=== PATIENT | male | born 1990 | race African-American/Black ===

== ENCOUNTER 2019-05-10 19:30 | Emergency (ER) | payer OTHER, MEDICAID ==
[~2019-05-10] VITALS: Ht 175.3 cm; Wt 73.0 kg
[~2019-05-10 19:30] MED LIST: BACTRIM; VICODIN
[2019-05-10 19:31] VITALS: BP 138/72
== END 2019-05-10 20:40 | disposition home or self-care (01) ==
LOC: ER 19:30
DX: Z00.00 Encounter for general adult medical examination without abnormal findings (principal)
CPT/HCPCS: 99283

== ENCOUNTER 2019-05-17 08:12 | Emergency (ER) | payer MEDICAID, OTHER ==
[~2019-05-17] VITALS: Ht 185.4 cm; Wt 82.0 kg
[2019-05-17] MEDS ORDERED: LORAZEPAM 2MG/ML CPJ IM ONE (09:15)
[2019-05-17 09:21] LABS: EOSINOPHILS % 0.4 % (0.0-5.0); HEMATOCRIT. 38.8 % (42.0-52.0); HEMOGLOBIN. 13.1 g/dL (14.0-18.0); LYMPHOCYTES % 26.4 % (20.0-50.0); MEAN CORPUSCULAR HEMOGLOBIN 28.4 pg (28.0-32.0); MEAN CORPUSCULAR VOLUME 84.2 fL (80.0-94.0); MEAN PLATELET VOLUME 7.7 fl (7.4-10.4); MONOCYTES % 10.4 % (2.0-8.0); NEUTROPHILS % 61.8 % (40.0-76.0); PLATELET 219 x1000/uL (130-400); RED CELL DISTRIBUTION WIDTH 13.5 % (11.6-14.6)
[2019-05-17 09:35] LABS: CHLORIDE 107 mEq/L (98-107)
[2019-05-17 09:39] LABS: ETHANOL BLOOD < 10 mg/dL
[2019-05-17] MEDS ORDERED: HALOPERIDOL LACTATE 5MG/ML VIAL IM ONE (10:30)
[2019-05-17 11:53] LABS: CLARITY URINE CLOUDY (CLEAR); COLOR URINE YELLOW (YELLOW); KETONES URINE TRACE (NEGATIVE); LEUKOCYTE ESTERASE URINE TRACE (NEGATIVE); NITRITE URINE NEGATIVE (NEGATIVE); OCCULT BLOOD URINE 2+ (NEGATIVE); PH URINE 5.5 (4.5-8.0); PROTEIN URINE 1+ (NEGATIVE); SPECIFIC GRAVITY URINE 1.028 (1.005-1.030)
[2019-05-17 12:48] LABS: *AMPHETAMINES SCREEN URINE PRESUMTIVE POSITIVE (NEGATIVE); *BARBITURATES SCREEN URINE NEGATIVE (NEGATIVE)
[2019-05-17 12:49] LABS: *BENZODIAZEPINES SCREEN URINE NEGATIVE (NEGATIVE); *COCAINE SCREEN URINE NEGATIVE (NEGATIVE); CANNABINOID URINE SCREEN PRESUMTIVE POSITIVE (NEGATIVE); METHADONE URINE SCREEN NEGATIVE (NEGATIVE); PHENCYCLIDINE URINE SCREEN NEGATIVE (NEGATIVE)
[2019-05-17 12:51] LABS: OPIATES URINE SCREEN NEGATIVE (NEGATIVE)
[2019-05-17 20:10] VITALS: BP 113/113
== END 2019-05-17 21:05 | disposition home or self-care (01) ==
LOC: ER 08:12
DX: F29 Unspecified psychosis not due to a substance or known physiological condition (principal); F45.8 Other somatoform disorders; F19.10 Other psychoactive substance abuse, uncomplicated; D64.9 Anemia, unspecified; N39.0 Urinary tract infection, site not specified; F12.10 Cannabis abuse, uncomplicated; F15.10 Other stimulant abuse, uncomplicated
CPT/HCPCS: 36415; 80053; 80305; 80320; 81003; 85025; 87086; 96372; 99284; J1630; J2060; Z7610; G0480

== ENCOUNTER 2019-10-01 13:10 | Emergency (ER) | payer MEDICAID ==
[~2019-10-01] VITALS: Ht 193 cm; Wt 59.0 kg
[2019-10-01 18:05] LABS: BASOPHILS % 0.7 % (0.0-2.0); EOSINOPHILS % 0.8 % (0.0-5.0); HEMATOCRIT. 47.1 % (42.0-52.0); HEMOGLOBIN. 15.9 g/dL (14.0-18.0); LYMPHOCYTES % 48.8 % (20.0-50.0); MEAN CORPUSCULAR HEMOGLOBIN 28.1 pg (28.0-32.0); MEAN CORPUSCULAR VOLUME 83.3 fL (80.0-94.0); MEAN PLATELET VOLUME 7.9 fl (7.4-10.4); MONOCYTES % 10.7 % (2.0-8.0); PLATELET 212 x1000/uL (130-400); RED BLOOD CELL COUNT 5.65 mill/uL (4.7-6.1); RED CELL DISTRIBUTION WIDTH 13.7 % (11.6-14.6)
[2019-10-01 18:06] LABS: CHLORIDE 106 mEq/L (98-107)
[2019-10-01 18:10] LABS: ETHANOL BLOOD < 10 mg/dL
[2019-10-01 19:11] LABS: CLARITY URINE TURBID (CLEAR); COLOR URINE DARK YELLOW (YELLOW); KETONES URINE TRACE (NEGATIVE); LEUKOCYTE ESTERASE URINE TRACE (NEGATIVE); NITRITE URINE NEGATIVE (NEGATIVE); OCCULT BLOOD URINE NEGATIVE (NEGATIVE); PROTEIN URINE 2+ (NEGATIVE); SPECIFIC GRAVITY URINE 1.031 (1.005-1.030)
[2019-10-01 19:28] LABS: *AMPHETAMINES SCREEN URINE PRESUMTIVE POSITIVE (NEGATIVE)
[2019-10-01 19:29] LABS: *BARBITURATES SCREEN URINE NEGATIVE (NEGATIVE); *BENZODIAZEPINES SCREEN URINE NEGATIVE (NEGATIVE); *COCAINE SCREEN URINE NEGATIVE (NEGATIVE); METHADONE URINE SCREEN NEGATIVE (NEGATIVE); OPIATES URINE SCREEN NEGATIVE (NEGATIVE); PHENCYCLIDINE URINE SCREEN NEGATIVE (NEGATIVE)
[2019-10-01 19:30] LABS: CANNABINOID URINE SCREEN PRESUMTIVE POSITIVE (NEGATIVE)
[2019-10-01] MEDS ORDERED: LORAZEPAM 1MG TABLET PO ONE (19:45)
[2019-10-01] MEDS ORDERED: ZIPRASIDONE HCL 20MG CAPSULE PO STA (19:48)
[2019-10-01] MEDS ORDERED: ZIPRASIDONE MESYLATE 20MG/VIAL IM ONE (20:00)
[2019-10-01] MEDS ORDERED: NICOTINE 14MG PATCH TD ONE (20:30)
[2019-10-01] MEDS ORDERED: ZIPRASIDONE MESYLATE 20MG/VIAL IM NR (20:45)
[2019-10-01] MEDS: QUETIAPINE FUMARATE 50MG TABLET PO SCH (21:00)
[2019-10-02] MEDS: QUETIAPINE FUMARATE 50MG TABLET PO SCH ×2 (09:09→21:00)
[2019-10-02] MEDS ORDERED: QUETIAPINE FUMARATE 50MG TABLET PO SCH (09:15)
[2019-10-03 16:00] VITALS: BP 129/72
== END 2019-10-03 16:12 ==
LOC: ER 13:10
DX: R45.851 Suicidal ideations (principal); F23 Brief psychotic disorder; F12.10 Cannabis abuse, uncomplicated; F15.10 Other stimulant abuse, uncomplicated; F17.200 Nicotine dependence, unspecified, uncomplicated
CPT/HCPCS: 36415; 80053; 80305; 80320; 81003; 85025; 96372; 99285; J3486; Z7610; 99284; G0480

== ENCOUNTER 2021-03-11 23:53 | Emergency (ER) | payer MEDICAID, OTHER ==
[~2021-03-11] VITALS: Ht 177.8 cm; Wt 82.0 kg
[2021-03-12 01:14] LABS: BASOPHILS % 0.7 % (0.0-2.0); EOSINOPHILS % 0.3 % (0.0-5.0); HEMATOCRIT. 45.3 % (42.0-52.0); HEMOGLOBIN. 15.3 g/dL (14.0-18.0); LYMPHOCYTES % 26.2 % (20.0-50.0); MEAN CORPUSCULAR HEMOGLOBIN 28.6 pg (28.0-32.0); MEAN CORPUSCULAR VOLUME 84.8 fL (80.0-94.0); MEAN PLATELET VOLUME 8.7 fl (7.4-10.4); NEUTROPHILS % 64.8 % (40.0-76.0); PLATELET 198 x1000/uL (130-400); RED BLOOD CELL COUNT 5.34 mill/uL (4.7-6.1)
[2021-03-12 01:15] LABS: CHLORIDE 105 mEq/L (98-107)
[2021-03-12 01:19] LABS: ETHANOL BLOOD < 10 mg/dL
[2021-03-12 04:12] LABS: *AMPHETAMINES SCREEN URINE PRESUMTIVE POSITIVE (NEGATIVE); *BARBITURATES SCREEN URINE NEGATIVE (NEGATIVE); *BENZODIAZEPINES SCREEN URINE NEGATIVE (NEGATIVE); *COCAINE SCREEN URINE NEGATIVE (NEGATIVE); CANNABINOID URINE SCREEN PRESUMTIVE POSITIVE (NEGATIVE); METHADONE URINE SCREEN NEGATIVE (NEGATIVE); OPIATES URINE SCREEN NEGATIVE (NEGATIVE); PHENCYCLIDINE URINE SCREEN NEGATIVE (NEGATIVE)
[2021-03-12 06:00] VITALS: BP 165/103
== END 2021-03-12 06:27 | disposition home or self-care (01) ==
LOC: ER 23:53
DX: G93.40 Encephalopathy, unspecified (principal); F17.200 Nicotine dependence, unspecified, uncomplicated
CPT/HCPCS: 36415; 80053; 80305; 80320; 82962; 85025; 93005; 99285; G0480

== ENCOUNTER 2021-07-27 18:26 | Emergency (ER) | payer MEDICAID, OTHER ==
[~2021-07-27] VITALS: Ht 188 cm; Wt 76.0 kg
[2021-07-27 18:41] VITALS: BP 175/84
== END 2021-07-27 22:00 | disposition home or self-care (01) ==
LOC: ER 18:26
DX: F25.9 Schizoaffective disorder, unspecified (principal); M79.89 Other specified soft tissue disorders
CPT/HCPCS: 99281

== ENCOUNTER 2021-07-28 10:56 | Emergency (ER) | payer OTHER, MEDICAID ==
[~2021-07-28] VITALS: Ht 172.7 cm; Wt 66.0 kg
[2021-07-28] MEDS ORDERED: LORAZEPAM 2MG/ML CPJ IV STA (11:53)
[2021-07-28] MEDS ORDERED: SODIUM CHLORIDE 0.9% 1,000 ML IV ONE (12:00)
[2021-07-28] MEDS ORDERED: LORAZEPAM 2MG/ML CPJ IM STA (12:33)
[2021-07-28] MEDS ORDERED: OLANZAPINE 10 MG/VIAL IM ONE (12:45)
[2021-07-28 14:02] LABS: BASOPHILS % 1.5 % (0.0-2.0); EOSINOPHILS % 0.3 % (0.0-5.0); HEMATOCRIT. 42.3 % (42.0-52.0); HEMOGLOBIN. 14.6 g/dL (14.0-18.0); LYMPHOCYTES % 48.2 % (20.0-50.0); MEAN CORPUSCULAR VOLUME 83.8 fL (80.0-94.0); MEAN PLATELET VOLUME 8.3 fl (7.4-10.4); MONOCYTES % 8.8 % (2.0-8.0); NEUTROPHILS % 41.2 % (40.0-76.0); PLATELET 231 x1000/uL (130-400); RED BLOOD CELL COUNT 5.05 mill/uL (4.7-6.1); RED CELL DISTRIBUTION WIDTH 13.9 % (11.6-14.6)
[2021-07-28 14:07] LABS: CHLORIDE 108 mEq/L (98-107)
[2021-07-28 14:13] LABS: ETHANOL BLOOD < 10 mg/dL
[2021-07-28] MEDS ORDERED: POTASSIUM CHLORIDE 20MEQ TABLET SR PO ONE (23:00)
[2021-07-28] MEDS: ARIPIPRAZOLE 5MG TABLET PO SCH (23:35)
[2021-07-29] MEDS: ARIPIPRAZOLE 5MG TABLET PO SCH (10:36)
[2021-07-29 11:30] VITALS: BP 120/83
== END 2021-07-29 13:21 | disposition home or self-care (01) ==
LOC: ER 10:56
DX: F15.129 Other stimulant abuse with intoxication, unspecified (principal); F20.9 Schizophrenia, unspecified; F31.9 Bipolar disorder, unspecified; Z20.822 Contact with and (suspected) exposure to COVID-19
CPT/HCPCS: 36415; 80053; 80307; 80320; 80329; 85025; 96360; 96372; 99285; C9803; J2060; J3490; J7030; U0003; U0005; G0480

== ENCOUNTER 2021-08-15 21:48 | Emergency (ER) | payer MEDICAID ==
[~2021-08-15] VITALS: Ht 182.9 cm; Wt 77.0 kg
[2021-08-15 23:08] LABS: BASOPHILS % 0.8 % (0.0-2.0); EOSINOPHILS % 1.3 % (0.0-5.0); HEMATOCRIT. 39.6 % (42.0-52.0); HEMOGLOBIN. 13.3 g/dL (14.0-18.0); MEAN CORPUSCULAR HEMOGLOBIN 28.2 pg (28.0-32.0); MEAN CORPUSCULAR VOLUME 84.3 fL (80.0-94.0); MONOCYTES % 8.8 % (2.0-8.0); NEUTROPHILS % 64.1 % (40.0-76.0); PLATELET 205 x1000/uL (130-400); RED BLOOD CELL COUNT 4.71 mill/uL (4.7-6.1); RED CELL DISTRIBUTION WIDTH 13.4 % (11.6-14.6)
[2021-08-15 23:17] LABS: CHLORIDE 111 mEq/L (98-107)
[2021-08-15 23:21] LABS: ETHANOL BLOOD < 10 mg/dL
[2021-08-16 06:10] VITALS: BP 130/94
== END 2021-08-16 07:00 | disposition home or self-care (01) ==
LOC: ER 21:48
DX: R45.1 Restlessness and agitation (principal)
CPT/HCPCS: 36415; 80053; 80320; 85025; 99285; G0480

== ENCOUNTER 2023-06-02 15:29 | Emergency (ER) | payer MEDICAID, OTHER ==
[~2023-06-02] VITALS: Ht 190.5 cm; Wt 77.0 kg
[2023-06-02 15:54] VITALS: PULSE 84; RESP 13; TEMP 97.7; O2SAT 98
[2023-06-02] MEDS ORDERED: LIDOCAINE HCL/PF 1% 10 MG/ML 5ML VIAL INFIL ONE (17:15)
[2023-06-02] MEDS ORDERED: BACITRACIN ZINC OINT UDPKT TOP ONE (17:15)
[2023-06-02] MEDS ORDERED: CEPH500C2 MT (17:45)
[2023-06-02] MEDS ORDERED: IBUP-2029 PO (17:45)
[2023-06-02] MEDS ORDERED: SULF1TAB48 MT (17:45)
== END 2023-06-02 18:47 | disposition home or self-care (01) ==
LOC: ER 15:29
DX: L03.012 Cellulitis of left finger (principal)
CPT/HCPCS: 10060; 99283; Z7610

== ENCOUNTER 2023-10-22 21:30 | Emergency (ER) | payer OTHER ==
[~2023-10-22] VITALS: Ht 193 cm; Wt 72.6 kg
[~2023-10-22 21:30] MED LIST changes: +CEPH500C2 MT; +IBUP-2029 PO; +SULF1TAB48 MT
[2023-10-22 21:38] VITALS: BP 112/67; PULSE 88; RESP 16; TEMP 98.2; O2SAT 99
[2023-10-23] MEDS ORDERED: IBUP-2030 MT (00:49)
== END 2023-10-23 00:56 | disposition home or self-care (01) ==
LOC: ER 21:30
DX: S92.902A Unspecified fracture of left foot, initial encounter for closed fracture (principal); M79.672 Pain in left foot; F15.10 Other stimulant abuse, uncomplicated; X58.XXXA Exposure to other specified factors, initial encounter; Y93.89 Activity, other specified; Y92.89 Other specified places as the place of occurrence of the external cause; Y99.8 Other external cause status
CPT/HCPCS: 73630; 29125; 99284; Z7610

== ENCOUNTER 2025-04-20 13:05 | Emergency (ER) | payer OTHER ==
[~2025-04-20] VITALS: Ht 193 cm; Wt 81.6 kg
[~2025-04-20 13:05] MED LIST changes: +IBUP-2030 MT
[2025-04-20 13:08] VITALS: BP 132/81; PULSE 101; RESP 16; TEMP 36.7; O2SAT 100
[2025-04-20 14:12] LABS: CHLORIDE 104 mEq/L (98-107); POTASSIUM 4.2 mEq/L (3.5-5.1); SODIUM 140 mEq/L (136-145)
[2025-04-20 14:13] LABS: CALCIUM 10.2 mg/dL (8.7-10.4); CARBON DIOXIDE 29 mEq/L (21-32)
[2025-04-20 14:14] LABS: BASOPHILS % 0.6 % (0.0-2.0); EOSINOPHILS % 1.4 % (0.0-5.0); HEMATOCRIT. 44.6 % (42.0-52.0); HEMOGLOBIN. 14.7 g/dL (14.0-18.0); LYMPHOCYTES % 34.9 % (20.0-50.0); MEAN CORPUSCULAR HEMOGLOBIN 27.1 pg (28.0-32.0); MEAN CORPUSCULAR HGB CONC 32.9 g/dL (31.0-37.0); MEAN CORPUSCULAR VOLUME 82.4 fL (80.0-94.0); MEAN PLATELET VOLUME 7.4 fl (7.4-10.4); NEUTROPHILS % 54.1 % (40.0-76.0); PLATELET 354 x1000/uL (130-400); RED BLOOD CELL COUNT 5.41 mill/uL (4.7-6.1); RED CELL DISTRIBUTION WIDTH 15.7 % (11.6-14.6); WHITE BLOOD COUNT 5.2 x1000/uL (4.5-11.0)
[2025-04-20 14:18] LABS: CREATININE 1.3 mg/dL (0.6-1.3); GLUCOSE 87 mg/dL (70-105); UREA NITROGEN BLOOD 11 mg/dL (9-23)
[2025-04-20 14:20] LABS: ALANINE AMINOTRANSFERASE 49 IU/L (10-49); ASPARTATE AMINOTRANSFERASE 143 IU/L (<34); BILIRUBIN TOTAL 0.7 mg/dL (0.1-1.0); PROTEIN TOTAL 7.6 g/dL (6.0-8.3)
[2025-04-20] MEDS ORDERED: ABIL5 MT (15:01)
== END 2025-04-20 15:08 | disposition home or self-care (01) ==
LOC: ER 13:05
DX: F99 Mental disorder, not otherwise specified (principal); Z00.00 Encounter for general adult medical examination without abnormal findings; Z76.0 Encounter for issue of repeat prescription
CPT/HCPCS: 36415; 80053; 85025; 99283